=== PATIENT | male | born 1995 | race African-American/Black ===

== ENCOUNTER 2020-11-12 06:33 | Emergency (ER) | payer OTHER, SELFPAY ==
[2020-11-12 06:55] VITALS: BP 118/77; PULSE 110; RESP 18; TEMP 37.8; O2SAT 97; BMI 25.7
--- NOTE | 2020-11-12 07:09 | ED.URI ---
HPI - URI/Sore Throat General Chief Complaint: General Medical Stated Complaint: sore throat Time Seen by Provider: 11/12/20 07:06 Source: patient Mode of arrival: ambulatory Limitations: no limitations History of Present Illness MD elicited complaint: sore throat Onset (ago): week(s) (1) Consistency: constant Severity: mild Description of mucous: clear Able to tolerate fluids by mouth: Yes Exacerbating factors: swallowing Relieving factors: nothing Associated symptoms: fever Treatments prior to arrival: none Related Data Allergies Allergy/AdvReac Type Severity Reaction Status Date / Time No Known Allergies Allergy Verified 11/12/20 07:16 Review of Systems Review of Systems: Constitutional : positive Fever, positive Chills, no fatigue, no Malaise ENT/Mouth : positive sore throat, no runny nose Eyes: No Discharge Cardiovascular : No Chest Pain, No SOB Respiratory : No Cough, No Sputum Gastrointestinal : No Nausea, No Vomiting, No Diarrhea Genitourinary : No Dysuria, No Urinary Frequency Musculoskeletal : no Myalgia Skin : No rash Neuro : No Headache PMFSH Past Medical History Attestation statement: The following information was validated with the patient. Medical History No active medical problems Social History Social History (Updated 11/12/20 @ 15:47 by Dee Kulkarni DO) Patient Tobacco Use Status: Never used Tobacco Use of substances other than those prescribed or required for medical reasons: No Advance Directives: No Advance Directives Information Provided: Yes Physical Exam Vital Signs: Vital Signs: Last Vital Signs Temp 100.1 F 11/12/20 06:55 Pulse 110 H 11/12/20 06:55 Resp 18 11/12/20 06:55 BP 118/77 11/12/20 06:55 Pulse Ox 97 11/12/20 06:55 Body Mass Index 25.7 Appearance: Alert. Oriented X3. No acute distress. Eyes: Pupils equal, round and reactive to light. ENT: Pharynx mild erythema no swelling/exudates Neck: Normal inspection. Neck supple. CVS: Normal heart rate and rhythm. Pulses normal. Respiratory: No respiratory distress. Breath sounds normal. Abdomen: Soft and nontender. Skin: Skin warm and dry. Normal skin color. Extremities: No lower extremity edema. Neuro: Oriented X 3. No motor deficit. No sensory deficit. Course Course Course Narrative: no resp complaints 97% on RA, clear lungs stable for DC MDM - URI/Sore Throat MDM Narrative Medical decision making narrative: 25 yo male with sore throat no resp issues, not toxic, seems atypical for strep, COVID swab Lab Data Labs: Lab Results 11/12/20 11/12/20 Range/Units 07:09 07:17 COVID-19 ([facility]NE) Positive A (Negative) COVID-19 Clin Com See Note S. pyogenes GrpA RAVEN Negative (Negative) Discharge Plan Discharge Clinical Impression: COVID-19 Patient Disposition: Home, Self-Care Instructions: COVID-19 (Coronavirus Disease 2019) (ED) Additional Instructions: return to ED for any worsening symptoms or concerns alternate tylenol and motrin for fevers, if you are so short of breath you cannot walk to your bathroom that is abnormal please return Stand Alone Forms: Work/School Release Interventions: ED Discharge Assessment Last Done: 11/12/20 07:49 Discharge Date/Time: 11/12/20 07:50
[2020-11-12] MEDS: Ibuprofen 600 MG TABLET PO (07:21)
[2020-11-12 07:25] LABS: COVID-19 Test Positive (Negative)
[2020-11-12 07:54] LABS: Strep A Nucleic Acid Negative (Negative)
== END 2020-11-12 07:50 | disposition home or self-care (01) ==
LOC: HO.ED 07:37
PROVIDERS: Emergency Provider Emergency Medicine
DX: U07.1 COVID-19 (principal); J02.9 Acute pharyngitis, unspecified
CPT/HCPCS: 36415; 87635; 87651; 99283